=== PATIENT | female | born 1965 | race Caucasian/White ===

== ENCOUNTER 2018-11-16 19:51 | Emergency (ER) | payer MEDICAID ==
[2018-11-16] MEDS ORDERED: Amoxicillin 500 MG Cap ONE (20:25)
[2018-11-16] MEDS ORDERED: Diphtheria/Tetanus Toxoids,Adult (Td) 0.5 ML SDV IM ONE (20:32)
--- NOTE | 2018-11-16 20:54 | EDM.PDOC ---
ED HPI GENERAL MEDICAL PROBLEM - General Chief Complaint: Laceration Stated Complaint: STABBED HAND Time Seen by Provider: 11/16/18 20:00 Source of Information: Reports: Patient History Limitations: Reports: No Limitations - History of Present Illness INITIAL COMMENTS - FREE TEXT/NARRATIVE: According to patient she claims that she was trying to open and old umbrella which was stuck and when she opened it one of the spoke hit through her left left hand and she sustained a puncture wound in he r left hand, which was bleeding a lot. Pt applied pressure and came to the emergency room. Presently the wound is not bleeding. Does c/o some pain in the puncture wound. She is not sure of her tetanus shot. No other complaints. Onset: Today Onset Date: 11/16/18 Onset Time: 19:30 Location: Reports: Upper Extremity, Left Quality: Reports: Ache Severity: Mild Improves with: Reports: None Worsens with: Reports: None Associated Symptoms: Denies: Confusion, Chest Pain, Cough, Diaphoresis, Fever/ Chills, Headaches, Nausea/Vomiting, Rash, Seizure, Shortness of Breath, Syncope , Weakness - Related Data Allergies Allergy/AdvReac Type Severity Reaction Status Date / Time No Known Allergies Allergy Verified 05/10/14 19:42 Home Meds: Home Meds Ibuprofen 600 mg PO TID PRN 04/22/14 [History] Aspirin [Nataliya Chewable Aspirin] 81 mg PO DAILY 05/03/14 [History] ED ROS GENERAL - Review of Systems Review Of Systems: See Below Constitutional: Denies: Fever, Chills HEENT: Denies: Rhinitis, Throat Pain Respiratory: Denies: Cough, Sputum Cardiovascular: Denies: Chest Pain, Lightheadedness GI/Abdominal: Denies: Abdominal Pain, Nausea, Vomiting Musculoskeletal: Denies: Joint Pain, Joint Swelling Skin: Reports: Wound. Denies: Bruising, Pruritis, Rash ED EXAM, SKIN/RASH Exam: See Below Exam Limited By: No Limitations General Appearance: Alert, WD/WN, No Apparent Distress Eye Exam: Bilateral Eye: EOMI, PERRL Ears: Normal External Exam, Normal Canal, Hearing Grossly Normal, Normal TMs Nose: Normal Inspection, Normal Mucosa, No Blood Throat/Mouth: Normal Inspection, Normal Lips, Normal Teeth, Normal Gums, Normal Oropharynx, Normal Voice, No Airway Compromise Head: Atraumatic, Normocephalic Neck: Normal Inspection, Supple, Non-Tender, Full Range of Motion Extremities: Normal Range of Motion, Non-Tender, Normal Capillary Refill Neurological: Alert, Oriented Skin: Warm, Other (left hand: there is a 3 mm puncture wound over the thenar eminenece of the hand. There is no active bleeding. Minimal tenderness to pressure.) Course - Vital Signs Text/Narrative:: Pt has sustained a puncture wound over the left thenar eminence. Presently it is not bleeding. The area was cleaned and simple antibiotic ointment dressing done. I have advised her to do daily dressing and avoid soaking in water until it heals. I have empirically started her on oral amox 500mg 3 times daily for 10 days as this is on the hand. Also she did receive tetanus injection today. infection precautions discussed. Followup in clinic next week. - Orders/Labs/Meds Orders: Active Orders 24 hr Category Date Time Status Vaccines to be Administered [RC] PER UNIT ROUTINE Care 11/16/18 20:33 Active Meds: Medications Discontinued Medications Generic Name Dose Route Start Last Admin Trade Name Carlos PRN Reason Stop Dose Admin Tetanus/Diphtheria Toxoids 0.5 ml 11/16/18 20:32 11/16/18 20:34 Tenivac IM 11/16/18 20:33 0.5 ml .ONCE ONE Administration Departure - Departure Time of Disposition: 21:00 Disposition: Home, Self-Care 01 Condition: Fair Clinical Impression: Puncture wound, hand - Discharge Information *PRESCRIPTION DRUG MONITORING PROGRAM REVIEWED*: Not Applicable *COPY OF PRESCRIPTION DRUG MONITORING REPORT IN PATIENT DINA: Not Applicable Instructions: VIS, Tetanus, Diphtheria (Td); Tetanus, Diphtheria, Pertussis ( Tdap) - CDC, Puncture Wound, [id number] Forms: ED Department Discharge - Problem List & Annotations (1) Puncture wound, hand SNOMED Code(s): 191814303 Code(s): S61.439A - PUNCTURE WOUND W/O FOREIGN BODY OF UNSP HAND, INIT ENCNTR Status: Acute Current Visit: Yes - Problem List Review Problem List Initiated/Reviewed/Updated: Yes - My Orders Last 24 Hours: My Active Orders 11/16/18 20:33 Vaccines to be Administered [RC] PER UNIT ROUTINE - Assessment/Plan Last 24 Hours: My Active Orders 11/16/18 20:33 Vaccines to be Administered [RC] PER UNIT ROUTINE Assessment:: Left hand puncture wound Plan: Pt has sustained a puncture wound over the left thenar eminence. Presently it is not bleeding. The area was cleaned and simple antibiotic ointment dressing done. I have advised her to do daily dressing and avoid soaking in water until it heals. I have empirically started her on oral amox 500mg 3 times daily for 10 days as this is on the hand. Also she did receive tetanus injection today. infection precautions discussed. Followup in clinic next week.
[2018-11-16 22:56] VITALS: BP 100/67
== END 2018-11-16 20:45 | disposition home or self-care (01) ==
LOC: LB.ED 19:51
DX: S61.432A Puncture wound without foreign body of left hand, initial encounter (principal); Z23 Encounter for immunization; Z79.82 Long term (current) use of aspirin; W26.8XXA Contact with other sharp object(s), not elsewhere classified, initial encounter
CPT/HCPCS: 90471; 90714; 99282; A9270

== ENCOUNTER 2020-03-24 12:17 | Emergency (ER) | payer MEDICAID ==
[2020-03-24 12:31] VITALS: BP 116/74; PULSE 79
[2020-03-24] MEDS ORDERED: Meclizine 12.5 MG Tab PO ONE (12:41)
[2020-03-24] MEDS ORDERED: Sodium Chloride 0.9% 1,000 ML IV ONE (12:41)
--- NOTE | 2020-03-24 17:30 | ER ---
HPI: A 54-year-old lady, here with complaints of being dizzy since Sunday. She states that she has been constantly dizzy, but it is worse if she lays down or changes positions. If she sits still, the dizziness is better. She did vomit quite a few times on Sunday, but has not vomited since. The patient tells me she has had longstanding history of vertigo and this feels similar to that. She also has history of migraine headaches and a thyroid issue. The patient states that she feels that she has had a migraine during the process of these symptoms being present. The patient denies any falls or injuries and has not been running a fever. She denies any problems with pain, coughing, or shortness of breath. OBJECTIVE: GENERAL APPEARANCE: The patient is awake and alert. No obvious distress. VITAL SIGNS: Reviewed. She is afebrile, pulse 79, blood pressure 116/74, O2 sats are 97% on room air, respirations 18. HEENT: Eyes, pupils equal, round, and reactive to light. EOMs are intact without strabismus, nystagmus, or ptosis. Oral mucous membranes slightly dry. Tonsils are not enlarged or injected. Pharynx not inflamed. The patient is able to turn her head both ways, but states the dizziness does get worse in either direction. Sitting upright and looking forward is much better. LUNGS: Clear to auscultation. CARDIAC: Heart sounds distinct without murmurs. SKIN: Warm and dry. INITIAL TREATMENT PLAN: She was given Antivert 25 mg and we started an IV and started giving her a bolus of 1 L of normal saline. EKG was obtained showing a normal sinus rhythm. LABORATORY DATA: Labs include a CBC which is normal. Comprehensive metabolic panel is also normal. TSH is slightly up at 4.54. The patient also is requesting a cholesterol panel which I would not usually do in the emergency room setting, but she tells me that if she knows her cholesterol levels are good, she will feel much better. Therefore, a lipid panel was ordered and the results are normal. DIAGNOSIS: Benign positional vertigo. TREATMENT PLAN: Over the course of monitoring the patient for approximately 1 hour, her symptoms have improved significantly. We will finish giving her the liter of fluid, after which, she will be discharged to home. I will keep her on Antivert, giving her a script. She is to take 1 tablet t.i.d. for 2 days and then p.r.n. dosing, and she is to continue with activity as tolerated. We discussed the Harjinder maneuver and nursing staff will print off information on how to do it effectively. Followup should be p.r.n. over the next 2 or 3 days if her symptoms do not continue to improve. Condition upon discharge is stable. CRS/MODL /[id number]
== END 2020-03-24 13:55 | disposition home or self-care (01) ==
LOC: LB.ED 12:17
DX: H81.10 Benign paroxysmal vertigo, unspecified ear (principal)
CPT/HCPCS: 36415; 80053; 80061; 84443; 85025; 93005; 99284; 99284-25; A9270-GY; J7030

== ENCOUNTER 2022-11-30 21:27 | Emergency (ER) | payer MEDICAID ==
[2022-11-30 21:40] VITALS: BP 130/80; PULSE 115
[2022-11-30] MEDS: oxyCODONE 5 MG Tab PO ONE (21:42)
[2022-11-30] MEDS: Cyclobenzaprine 10 MG Tab PO ONE (21:44)
== END 2022-11-30 22:40 | disposition home or self-care (01) ==
LOC: LB.ED 21:27
DX: M25.551 Pain in right hip (principal); G89.29 Other chronic pain; E03.9 Hypothyroidism, unspecified; Z79.899 Other long term (current) drug therapy; Z98.890 Other specified postprocedural states
CPT/HCPCS: 73502-RT; 99283; A9270-GY

== ENCOUNTER 2022-12-21 16:21 | Emergency (ER) | payer MEDICAID ==
[2022-12-21 16:44] VITALS: BP 142/89; PULSE 84
[2022-12-21] MEDS ORDERED: cefTRIAXone 1 GM Vial IM ONE (16:49)
[2022-12-21] MEDS ORDERED: cefTRIAXone 1 GM Vial ONE (16:55)
== END 2022-12-21 17:19 | disposition home or self-care (01) ==
LOC: LB.ED 16:21
DX: L03.113 Cellulitis of right upper limb (principal); E03.9 Hypothyroidism, unspecified; Z79.899 Other long term (current) drug therapy
CPT/HCPCS: 96372; 99283; J0696

== ENCOUNTER 2023-05-10 11:30 | Emergency (ER) | payer MEDICAID ==
[2023-05-10] MEDS ORDERED: Ketorolac 30 MG/ML SDV IVPUSH ONE (12:04)
[2023-05-10] MEDS ORDERED: Ketorolac 30 MG/ML SDV ONE (12:10)
[2023-05-10 12:20] LABS: BASOPHILS ABSOLUTE AUTO 0.01 K/uL (0.02-0.10); BASOPHILS PERCENT AUTO 0.1 % (0.0-0.5); EOSINOPHILS ABSOLUTE AUTO 0.05 K/uL (0.04-0.40); EOSINOPHILS PERCENT AUTO 0.4 % (1.0-5.0); HEMATOCRIT 37.5 % (37.0-47.0); HEMOGLOBIN 12.1 g/dL (11.5-16.5); LYMPHOCYTES ABSOLUTE AUTO 2.64 K/uL (1.50-4.00); LYMPHOCYTES PERCENT AUTO 19.4 % (20.0-40.0); MEAN CORPUSCULAR HGB CONC 32.3 g/dL (31.0-35.0); MEAN CORPUSCULAR VOLUME 87 fL (76-96); MEAN PLATELET VOLUME 8.7 fL (6.0-10.0); MONOCYTES ABSOLUTE AUTO 1.25 K/uL (0.20-0.80); MONOCYTES PERCENT AUTO 9.2 % (3.0-10.0); NEUTROPHILS ABSOLUTE AUTO 9.66 K/uL (2.00-7.50); NEUTROPHILS PERCENT AUTO 70.9 % (45.0-70.0); PLATELET COUNT,PLT 377 K/uL (150-500); RED BLOOD CELL COUNT 4.32 M/uL (3.80-5.80); RED CELL DISTRIBUTION WIDTH 14.3 % (11.0-16.0); WHITE BLOOD CELL COUNT,WBC 13.6 K/uL (4.0-11.0)
[2023-05-10 12:35] LABS: A/G RATIO 0.4 (0.8-2.0); ALBUMIN 2.4 g/dL (3.4-5.0); ANION GAP 11.9 mmol/L (5.0-15.0); BILIRUBIN TOTAL 0.4 mg/dL (0.0-1.0); CALCIUM 8.6 mg/dL (8.5-10.1); CARBON DIOXIDE,CO2 25.1 mmol/L (21.0-32.0); EST CRCL DRUG DOSING (CG) 53.6 mL/min; PROTEIN TOTAL,TP 7.8 g/dL (6.4-8.2)
[2023-05-10] MEDS ORDERED: Potassium Chloride 20 MEQ Tab.ER PO ONE (12:57)
[2023-05-10] MEDS ORDERED: Sodium Chloride 0.9% 50 ML SDV FLUSH ONE (13:01)
[2023-05-10] MEDS ORDERED: Iopamidol 612 MG/ML 100 ML Bottle IV SCH (13:15)
[2023-05-10 16:55] VITALS: BP 125/72; PULSE 91
== END 2023-05-10 14:55 | disposition home or self-care (01) ==
LOC: LB.ED 11:30
DX: R18.8 Other ascites (principal); E03.9 Hypothyroidism, unspecified; E66.9 Obesity, unspecified; Z68.41 Body mass index [BMI] 40.0-44.9, adult; Z90.710 Acquired absence of both cervix and uterus; Z79.899 Other long term (current) drug therapy
CPT/HCPCS: 36415; 72194; 80053; 85025; 85651; 96374; 99284-25; J1885; J3490; Q9967

== ENCOUNTER 2023-05-25 10:12 | Emergency (ER) | payer MEDICAID ==
[2023-05-25 11:42] VITALS: BP 119/68; PULSE 99
[2023-05-25] MEDS ORDERED: Acetaminophen/HYDROcodone 325-5 MG Tab ONE (13:30)
[2023-05-25] MEDS ORDERED: Acetaminophen/HYDROcodone 325-5 MG Tab PO ONE (13:32)
[2023-05-25 13:43] LABS: HEMATOCRIT 36.8 % (37.0-47.0); HEMOGLOBIN 11.8 g/dL (11.5-16.5); MEAN CORPUSCULAR HEMOGLOBIN 27.5 pg (27.0-32.0); MEAN CORPUSCULAR HGB CONC 32.1 g/dL (31.0-35.0); MEAN CORPUSCULAR VOLUME 86 fL (76-96); MEAN PLATELET VOLUME 7.8 fL (6.0-10.0); RED BLOOD CELL COUNT 4.29 M/uL (3.80-5.80); RED CELL DISTRIBUTION WIDTH 14.4 % (11.0-16.0); WHITE BLOOD CELL COUNT,WBC 13.4 K/uL (4.0-11.0)
[2023-05-25] MEDS ORDERED: Acetaminophen/HYDROcodone 325-5 MG Tab PO SCH (13:45)
[2023-05-25 14:06] LABS: PLATELET COUNT,PLT 683 K/uL (150-500)
[2023-05-25 14:25] LABS: ANISOCYTOSIS RARE; HYPOCHROMASIA OCCASIONAL; POIKILOCYTOSIS RARE; STOMATOCYTES RARE
[2023-05-25 14:26] LABS: PLATELET COUNT ESTIMATE MARKED INC
== END 2023-05-25 16:54 ==
LOC: LB.ED 10:12
DX: R18.8 Other ascites (principal); E03.9 Hypothyroidism, unspecified; E66.9 Obesity, unspecified; Z68.39 Body mass index [BMI] 39.0-39.9, adult; Z90.710 Acquired absence of both cervix and uterus; Z79.899 Other long term (current) drug therapy
CPT/HCPCS: 36415; 85025; 99284; A9270-GY

== ENCOUNTER 2024-01-23 13:55 | Emergency (ER) | payer MEDICAID ==
[2024-01-23] MEDS: Lidocaine 1% 5 ML VIAL INJECT ONE (14:45)
[2024-01-23 14:47] VITALS: BP 134/82; PULSE 84
== END 2024-01-23 14:40 | disposition home or self-care (01) ==
LOC: LB.ED 13:55
DX: S61.412A Laceration without foreign body of left hand, initial encounter (principal); E03.9 Hypothyroidism, unspecified; Z79.890 Hormone replacement therapy; Z79.899 Other long term (current) drug therapy; Z90.710 Acquired absence of both cervix and uterus; W26.0XXA Contact with knife, initial encounter; Y93.89 Activity, other specified
CPT/HCPCS: 12001; 99282

== ENCOUNTER 2024-12-13 14:32 | Emergency (ER) | payer MEDICAID ==
[2024-12-13 14:41] VITALS: BP 122/80; PULSE 88
== END 2024-12-13 15:25 | disposition home or self-care (01) ==
LOC: LB.ED 14:32
DX: H81.11 Benign paroxysmal vertigo, right ear (principal); E03.9 Hypothyroidism, unspecified; Z86.73 Personal history of transient ischemic attack (TIA), and cerebral infarction without residual deficits; Z79.890 Hormone replacement therapy; Z90.49 Acquired absence of other specified parts of digestive tract
CPT/HCPCS: 99283